=== PATIENT | male | born 1985 | race Asian ===

== ENCOUNTER 2019-08-24 16:28 | Emergency (ER) | payer SELFPAY ==
[~2019-08-24] VITALS: Ht 162.6 cm; Wt 79.0 kg
[2019-08-24] MEDS ORDERED: MORPHINE SULFATE 4 MG/ML CPJ (NOT FOR IM USE) IV ONE (16:45)
[2019-08-24] MEDS ORDERED: ONDANSETRON HCL 4MG/2ML INJ IV ONE (16:45)
[2019-08-24] MEDS ORDERED: PROPOFOL 200MG/20ML VIAL IV ONE (17:30)
[2019-08-24] MEDS ORDERED: KETAMINE HCL 50 MG/ML 10ML IV ONE (17:30)
[2019-08-24 19:07] VITALS: BP 139/77
== END 2019-08-24 19:15 | disposition home or self-care (01) ==
LOC: ER 16:28
DX: S42.291A Other displaced fracture of upper end of right humerus, initial encounter for closed fracture (principal); W01.10XA Fall on same level from slipping, tripping and stumbling with subsequent striking against unspecified object, initial encounter; Y93.89 Activity, other specified; Y92.008 Other place in unspecified non-institutional (private) residence as the place of occurrence of the external cause; I10 Essential (primary) hypertension
CPT/HCPCS: 23650; 73030; 73060; 96374; 96375; 99152; 99285; J2270; J2405; J2704; J3490; Z7610; L3670